=== PATIENT | female | born 1935 | race Caucasian/White ===

== ENCOUNTER → 2020-02-25 | Outpatient (CLI) | payer MEDICARE | END | disposition home or self-care (01) | LOC: RAD 06:37 | PROVIDERS: ATTEND Internal Medicine Gastroenterology | DX: K44.9 Diaphragmatic hernia without obstruction or gangrene (principal); K21.9 Gastro-esophageal reflux disease without esophagitis | CPT/HCPCS: 74240; 74248 ==

== ENCOUNTER 2020-04-22 06:44 | Outpatient (CLI) | payer MEDICARE ==
[2020-04-22] MEDS ORDERED: REGADENOSON 0.4 MG/5 ML SYRINGE ONE (09:17)
== END 2020-04-22 23:59 | disposition home or self-care (01) ==
LOC: CVU 06:44
PROVIDERS: ATTEND Internal Medicine Cardiovascular Disease
DX: I08.8 Other rheumatic multiple valve diseases (principal); I21.19 ST elevation (STEMI) myocardial infarction involving other coronary artery of inferior wall; R06.02 Shortness of breath; I10 Essential (primary) hypertension
CPT/HCPCS: 78452; 93017; 93306; A9502; J2785

== ENCOUNTER → 2020-06-03 | Outpatient (CLI) | payer MEDICARE | END | disposition home or self-care (01) | LOC: CFH 11:31 | PROVIDERS: ATTEND Nurse Practitioner | DX: M85.80 Other specified disorders of bone density and structure, unspecified site (principal); M81.0 Age-related osteoporosis without current pathological fracture | CPT/HCPCS: 77080 ==

== ENCOUNTER 2020-11-11 11:44 | Outpatient (CLI) | payer MEDICARE | END 2020-11-11 23:59 | disposition home or self-care (01) | LOC: LAB 11:44 | PROVIDERS: ATTEND Nurse Practitioner | DX: I10 Essential (primary) hypertension (principal); I25.10 Atherosclerotic heart disease of native coronary artery without angina pectoris; E11.65 Type 2 diabetes mellitus with hyperglycemia ==